=== PATIENT | male | born 1995 | race Caucasian/White ===

== ENCOUNTER 2017-03-01 09:52 | Observation (INO) | payer MEDICAID ==
[~2017-03-01] VITALS: Ht 190.5 cm; Wt 149.0 kg
[2017-03-01 09:53] VITALS: BP 165/97; PULSE 110; RESP 16; TEMP 99.1; O2SAT 97
--- NOTE | 2017-03-01 10:40 | PD ---
HPI Chief Complaint: ENT Complaint Time Seen by Provider: 10:22 Travel History International Travel<30 days: No Contact w/Intl Traveler<30days: No Traveled to known affect area: No History of Present Illness HPI 21-year-old male presents to emergency Department with complaint of sore throat since this morning. This has been sick for a week, but this morning woke up with his sore throat much worse. Pain is more on the left side. He says he can swallow his own saliva but it is very painful. Denies unusual drooling. Denies fevers, vomiting. No others with similar symptoms. Has gargled hydrogen peroxide for symptom management. Symptoms are moderate in severity. Aggravated with swallowing. Decreased without swallowing. Allergies to penicillin. No established primary care provider. Denies significant past medical history. Has no other medical complaints. No other modifying factors or associated signs and symptoms. PFSH Past Medical History Medical History: Denies Significant Hx Past Surgical History Surgical History: No Previous Surgery Social History Alcohol Use: Yes (RARE) Tobacco Use: Yes Substance Use: No Allergies-Medications (Allergen,Severity, Reaction): Coded Allergies: penicillin G (Verified Allergy, Unknown, 03/01/17) father is Reported Meds & Prescriptions Reported Meds & Active Scripts Active No Active Prescriptions or Reported Medications Review of Systems Except as stated in HPI: all other systems reviewed are Neg Physical Exam Narrative GENERAL: Well-nourished, well-developed male patient, in no acute distress SKIN: Warm and dry. No rash. HEAD: Atraumatic. Normocephalic. EYES: Pupils equal and round at 3 mm with brisk reaction. No scleral icterus. No injection or drainage. PERRLA. ENT: Mucosa pink and dry. Oral pharynx with left tonsil 3+ and right tonsil 2+ ; left worse than right. With Erythema and edema; without exudate. No Uvular edema. No uvular, palatal, or tonsillar deviation. Airway patent. Voice is hoarse. EARS: Bilateral pinnae and external canals appear within normal limits. Bilateral tympanic membranes without erythema, dullness or perforation.. NECK: Trachea midline. Anterior cervical lymphadenopathy and tenderness; left worse than right. CARDIOVASCULAR: Regular rate. RESPIRATORY: No accessory muscle use. GASTROINTESTINAL: Obese. MUSCULOSKELETAL: No obvious deformities. No clubbing. No cyanosis. No edema. NEUROLOGICAL: Awake and alert. Oriented 3. No obvious cranial nerve deficits. Motor grossly within normal limits. Normal speech. Moves all extremities. PSYCHIATRIC: Appropriate mood and affect; insight and judgment normal. Data Data Last Documented VS Vital Signs Date Time Temp Pulse Resp B/P (MAP) Pulse Ox O2 Delivery O2 Flow Rate FiO2 03/01/17 14:00 98.3 88 15 140/74 (96) 96 Room Air Orders Orders Group A Rapid Strep Screen (03/01/17 10:31) Ibuprofen (Motrin) (03/01/17 10:45) Methylprednisolone So Succ Inj (Solumedr (03/01/17 10:45) Strep Culture (Group A) (03/01/17 10:45) Basic Metabolic Panel (Bmp) (03/01/17 11:30) Complete Blood Count With Diff (03/01/17 11:30) Ct Soft Tiss Neck W Iv Cont (03/01/17 11:30) Iv Access Insert/Monitor (03/01/17 11:30) Clindamycin 600 Mg/Ns Premix (Cleocin 60 (03/01/17 12:00) Blood Culture (03/01/17 12:25) Lactic Acid (03/01/17 12:25) Sodium Chlor 0.9% 1000 Ml Inj (Ns 1000 M (03/01/17 12:30) Iohexol 350 Inj (Omnipaque 350 Inj) (03/01/17 12:35) Admit Order (Ed Use Only) (03/01/17 14:08) Labs Laboratory Tests Test 03/01/17 11:46 03/01/17 14:00 White Blood Count 24.2 TH/MM3 Red Blood Count 5.86 MIL/MM3 Hemoglobin 16.1 GM/DL Hematocrit 47.8 % Mean Corpuscular Volume 81.5 FL Mean Corpuscular Hemoglobin 27.4 PG Mean Corpuscular Hemoglobin Concent 33.6 % Red Cell Distribution Width 14.3 % Platelet Count 411 TH/MM3 Mean Platelet Volume 8.0 FL Neutrophils (%) (Auto) 79.6 % Lymphocytes (%) (Auto) 10.5 % Monocytes (%) (Auto) 8.5 % Eosinophils (%) (Auto) 0.9 % Basophils (%) (Auto) 0.5 % Neutrophils # (Auto) 19.3 TH/MM3 Lymphocytes # (Auto) 2.5 TH/MM3 Monocytes # (Auto) 2.1 TH/MM3 Eosinophils # (Auto) 0.2 TH/MM3 Basophils # (Auto) 0.1 TH/MM3 CBC Comment DIFF FINAL Differential Comment Blood Urea Nitrogen 10 MG/DL Creatinine 0.90 MG/DL Random Glucose 103 MG/DL Calcium Level 9.3 MG/DL Sodium Level 134 MEQ/L Potassium Level 4.0 MEQ/L Chloride Level 102 MEQ/L Carbon Dioxide Level 26.3 MEQ/L Anion Gap 6 MEQ/L Estimat Glomerular Filtration Rate 108 ML/MIN Lactic Acid Level 0.9 mmol/L MDM Medical Decision Making Medical Screen Exam Complete: Yes Emergency Medical Condition: Yes Medical Record Reviewed: Yes Differential Diagnosis Strep pharyngitis, viral pharyngitis, peritonsillar abscess Narrative Course 21-year-old male with sore throat. Left tonsil is edematous and could possibly be peritonsillar abscess. Rapid strep ordered. 1134: Rapid strep negative. Concern for possible peritonsillar abscess. CT soft tissue neck, CBC, BMP, clindamycin ordered. 1139: Report given to Shady Dumont PA-C. See his note for final patient disposition. Scripts No Active Prescriptions or Reported Meds Tamanna Jade Mar 01, 2017 10:40
[2017-03-01] MEDS ORDERED: methylPREDNISolone SOD SUCC 125 MG/2 ML VIAL IM ONE (10:45)
[2017-03-01] MEDS ORDERED: IBUPROFEN 800 MG TAB PO ONE (10:45)
[2017-03-01] MEDS ORDERED: CLINDAMYCIN INJ 600 MG in SODIUM CHLORIDE 0.9% INJ 100 ML IV ONE (11:30)
[2017-03-01] MEDS ORDERED: CLINDAMYCIN 600 MG/NS PREMIX 50 ML IV ONE (12:00)
[2017-03-01 12:10] LABS: AUTOMATED NEUTROPHIL # 19.3 TH/MM3 (1.8-7.7); BASOPHIL # 0.1 TH/MM3 (0-0.2); BASOPHIL % 0.5 % (0.0-2.0); EOSINOPHIL # 0.2 TH/MM3 (0-0.4); EOSINOPHIL % 0.9 % (0.0-4.0); HEMATOCRIT 47.8 % (39.0-51.0); HEMOGLOBIN 16.1 GM/DL (13.0-17.0); LYMPH % 10.5 % (9.0-44.0); LYMPHOCYTE # 2.5 TH/MM3 (1.0-4.8); MEAN CELL VOLUME 81.5 FL (80.0-100.0); MEAN CORPUSCULAR HEMOGLOBIN 27.4 PG (27.0-34.0); MEAN CORPUSCULAR HGB CONC 33.6 % (32.0-36.0); MONO % 8.5 % (0.0-8.0); MONOCYTE # 2.1 TH/MM3 (0-0.9); NEUT % 79.6 % (16.0-70.0); PLATELET COUNT 411 TH/MM3 (150-450); RED BLOOD COUNT 5.86 MIL/MM3 (4.50-5.90); RED CELL DISTRIBUTION WIDTH 14.3 % (11.6-17.2); WHITE BLOOD COUNT 24.2 TH/MM3 (4.0-11.0)
[2017-03-01 12:26] LABS: BICARBONATE 26.3 MEQ/L (21.0-32.0); CALCIUM 9.3 MG/DL (8.5-10.1); CREATININE 0.9 MG/DL (0.60-1.30)
--- NOTE | 2017-03-01 12:28 | PD ---
Physical Exam Date Seen by Provider: Mar 01, 2017 Time Seen by Provider: 12:26 Narrative 21-year-old male patient previously seen in [facility], moved to [facility] with suspected left peritonsillar abscess. Labs have been ordered, as well as IV clindamycin 600 mg IV. Patient speaking in full sentences and handling oral secretions. Labs, CT, and antibiotics ordered in [facility] pod. Patient is allergic to penicillin. Data Data Last Documented VS Vital Signs Date Time Temp Pulse Resp B/P (MAP) Pulse Ox O2 Delivery O2 Flow Rate FiO2 03/01/17 09:53 99.1 110 16 165/97 (119) 97 Orders Orders Group A Rapid Strep Screen (03/01/17 10:31) Ibuprofen (Motrin) (03/01/17 10:45) Methylprednisolone So Succ Inj (Solumedr (03/01/17 10:45) Strep Culture (Group A) (03/01/17 10:45) Basic Metabolic Panel (Bmp) (03/01/17 11:30) Complete Blood Count With Diff (03/01/17 11:30) Ct Soft Tiss Neck W Iv Cont (03/01/17 11:30) Iv Access Insert/Monitor (03/01/17 11:30) Clindamycin 600 Mg/Ns Premix (Cleocin 60 (03/01/17 12:00) Blood Culture (03/01/17 12:25) Lactic Acid (03/01/17 12:25) Sodium Chlor 0.9% 1000 Ml Inj (Ns 1000 M (03/01/17 12:30) Iohexol 350 Inj (Omnipaque 350 Inj) (03/01/17 12:35) Admit Order (Ed Use Only) (03/01/17 14:08) Labs Laboratory Tests Test 03/01/17 11:46 White Blood Count 24.2 TH/MM3 Red Blood Count 5.86 MIL/MM3 Hemoglobin 16.1 GM/DL Hematocrit 47.8 % Mean Corpuscular Volume 81.5 FL Mean Corpuscular Hemoglobin 27.4 PG Mean Corpuscular Hemoglobin Concent 33.6 % Red Cell Distribution Width 14.3 % Platelet Count 411 TH/MM3 Mean Platelet Volume 8.0 FL Neutrophils (%) (Auto) 79.6 % Lymphocytes (%) (Auto) 10.5 % Monocytes (%) (Auto) 8.5 % Eosinophils (%) (Auto) 0.9 % Basophils (%) (Auto) 0.5 % Neutrophils # (Auto) 19.3 TH/MM3 Lymphocytes # (Auto) 2.5 TH/MM3 Monocytes # (Auto) 2.1 TH/MM3 Eosinophils # (Auto) 0.2 TH/MM3 Basophils # (Auto) 0.1 TH/MM3 CBC Comment DIFF FINAL Differential Comment Blood Urea Nitrogen 10 MG/DL Creatinine 0.90 MG/DL Random Glucose 103 MG/DL Calcium Level 9.3 MG/DL Sodium Level 134 MEQ/L Potassium Level 4.0 MEQ/L Chloride Level 102 MEQ/L Carbon Dioxide Level 26.3 MEQ/L Anion Gap 6 MEQ/L Estimat Glomerular Filtration Rate 108 ML/MIN MDM Medical Record Reviewed: Yes Supervised Visit with MARTINEZ: Yes Differential Diagnosis Peritonsillar abscess. Retropharyngeal abscess. Tonsillitis. Sepsis. Narrative Course Labs reviewed showing leukocytosis of 23.2. Lactic acid and blood cultures are ordered. CMP is unremarkable. CT shows: Abnormal scan demonstrating left-sided mass in the oral and hypopharyngeal region extending from base of tongue to the pyriformis sinus. In addition, there are numerous bilateral enlarged lateral compartment and posterior triangle nodes measuring up to 3 cm. Lymphoproliferative and neoplastic processes should be considered. Call is placed to the hospitalist, and the patient is discussed with Dr. Hammer. Sepsis Criteria SIRS Criteria (2 or more): Temp > 100.9 or < 96.8, WBC > 83844, < 4000 or > 10 % bands Sepsis Criteria (SIRS+source): Infect source susp/known Criteria Outcome: Meets SIRS criteria, Meets sepsis criteria Diagnosis Primary Impression: Sepsis Qualified Codes: A41.9 - Sepsis, unspecified organism Additional Impression: Abscess of lateral pharyngeal space Admitting Information Admitting Physician Requests: Admit Scripts No Active Prescriptions or Reported Meds Disposition: 01 DISCHARGE HOME Condition: Stable Sadi Dumont Mar 01, 2017 12:28
[2017-03-01] MEDS ORDERED: SODIUM CHLOR 0.9% 1000 ML INJ 1,000 ML IV ONE (12:30)
[2017-03-01] MEDS ORDERED: IOHEXOL 350 MG/ML 10 ML VIAL (for RAD DIAG) IVCONTRAST ONE (12:35)
--- NOTE | 2017-03-01 12:54 | RADRPT ---
EXAM DATE/TIME: 03/01/2017 12:22 [facility] COMPARISON: No previous studies available for comparison. INDICATIONS : Sore throat since this morning. IV CONTRAST: 71 cc Omnipaque 350 (iohexol) IV RADIATION DOSE: 17.08 CTDIvol (mGy) MEDICAL HISTORY : None SURGICAL HISTORY : None. ENCOUNTER: Initial ACUITY: 1 day PAIN SCALE: 5/10 LOCATION: neck TECHNIQUE: Volumetric scanning of the neck was performed. Using automated exposure control and adjustment of th e mA and/or kV according to patient size, radiation dose was kept as low as reasonably achievable to obtain optimal diagnostic quality images. DICOM format image data is available electronically for r eview and comparison. FINDINGS: The examination is abnormal demonstrating soft tissue mass at the left base of the tongue and extendi ng along the lateral oral pharyngeal wall down through the level of the larynx. The margin of the mas s are difficult to discern due to similar intensity to surrounding soft tissues, but the mass does ca use narrowing of the oral pharyngeal airway and deviation of the airway towards the right. Maximum ob lique dimension in the oral pharynx is estimated at 3 cm. The width of the mass at the level of the e piglottis is 1.6 cm. There is extension into the left puriform sinus measuring 1.5 cm. There are numerous enlarged bilateral jugular and posterior triangle nodes with the largest mass on t he left measuring 3.0 cm and the largest on the right measuring 2.5 cm. Rounded soft tissue density in the right inferior maxillary sinus measures 2.7 cm, probably a retenti on cyst or polyp. The prevertebral soft tissues are normal in thickness. Homogeneous density to thyroid gland. The visu alized apical lungs are clear. Osseous structures are grossly intact.. CONCLUSION: Abnormal scan demonstrating left-sided mass in the oral and hypopharyngeal region extending from base of tongue to the pyriformis sinus. In addition, there are numerous bilateral enlarged lateral compar tment and posterior triangle nodes measuring up to 3 cm. Lymphoproliferative and neoplastic processes should be considered. Sky Mc MD on March 01, 2017 at 12:44 Board Certified Radiologist. This report was verified electronically.
[2017-03-01 14:00] VITALS: BP 140/74; PULSE 88; RESP 15; TEMP 98.3; O2SAT 96
--- NOTE | 2017-03-01 14:10 | HHI.HP ---
HPI Service [facility] Primary Care Physician No Primary Care Physician Admission Diagnosis Diagnoses: Chief Complaint: Sore Throat Travel History International Travel<30 Days: No Contact w/Intl Traveler <30 Da: No Traveled to Known Affected Are: No History of Present Illness This is a pleasant 21 y/o Male who came to ER with Sore Throat that started this morning, he is been sick for one week, but this morning woke up with his sore throat much worse. Pain is more on the left side. He says he can swallow his own saliva but it is very painful. Denies unusual drooling. Denies fevers, vomiting. No others with similar symptoms. Has gargled hydrogen peroxide for symptom management. Symptoms are moderate in severity. Aggravated with swallowing. Decreased without swallowing. Allergies to penicillin. No established primary care provider. Denies significant past medical history. Has no other medical complaints. No other modifying factors or associated signs and symptoms. Seen in ER in the presence of his Stepmother. no complaint at this time. Review of Systems Constitutional: DENIES: Fever, Chills, Change in appetite Endocrine: DENIES: Heat/cold intolerance Eyes: DENIES: Blurred vision, Eye pain Ears, nose, mouth, throat: COMPLAINS OF: Throat pain Except as stated in HPI: all other systems reviewed are Neg Past Family Social History Past Medical History No past medical history Past Surgical History No past surgical history Reported Medications Reported Meds & Active Scripts Active No Active Prescriptions or Reported Medications Allergies: Coded Allergies: penicillin G (Verified Allergy, Unknown, 03/01/17) father is Active Ordered Medications Current Medications Medications (Trade) Dose Ordered Sig/Ifeanyi Route Start Time Stop Time Status Last Admin Sodium Chloride 1,000 ml @ 100 mls/hr Q10H IV 03/01/17 14:10 03/01/17 15:10 (NS Flush) 2 ml UNSCH PRN IV FLUSH 03/01/17 14:15 (NS Flush) 2 ml BID IV FLUSH 03/01/17 21:00 (Tylenol) 650 mg Q4H PRN PO 03/01/17 14:15 (Zofran Inj) 4 mg Q6H PRN IVP 03/01/17 14:15 (Narcan Inj) 0.4 mg UNSCH PRN IV PUSH 03/01/17 14:15 (Senokot) 17.2 mg Q12H PRN PO 03/01/17 14:15 (Dulcolax Supp) 10 mg DAILY PRN RECTAL 03/01/17 14:15 (Lactulose Liq) 30 ml DAILY PRN PO 03/01/17 14:15 Family History Mother with Epilepsy and Obesity Social History Lives with his Father and stepmother Smokes five cigarettes daily denies other toxic habits. Physical Exam Vital Signs Vital Signs Date Time Temp Pulse Resp B/P (MAP) Pulse Ox O2 Delivery O2 Flow Rate FiO2 03/01/17 09:53 99.1 110 16 165/97 (119) 97 Physical Exam GENERAL: Morbid obese patient in no acute distress. SKIN: No rashes, ecchymoses or lesions. Cool and dry. HEAD: Atraumatic. Normocephalic. No temporal or scalp tenderness. EYES: Pupils equal round and reactive. Extraocular motions intact. No scleral icterus. No injection or drainage. ENT: Left tonsil with erythema and edema. NECK: Trachea midline. No JVD or lymphadenopathy. Supple, nontender, no meningeal signs. CARDIOVASCULAR: Regular rate and rhythm without murmurs, gallops, or rubs. RESPIRATORY: Clear to auscultation. Breath sounds equal bilaterally. No wheezes , rales, or rhonchi. GASTROINTESTINAL: Abdomen soft, non-tender, nondistended. No hepato-splenomegaly , or palpable masses. No guarding. MUSCULOSKELETAL: Extremities without clubbing, cyanosis, or edema. No joint tenderness, effusion, or edema noted. No calf tenderness. Negative Homans sign bilaterally. NEUROLOGICAL: Awake and alert. Cranial nerves II through XII intact. Motor and sensory grossly within normal limits. Five out of 5 muscle strength in all muscle groups. Normal speech. Laboratory Laboratory Tests Test 03/01/17 11:46 White Blood Count 24.2 Red Blood Count 5.86 Hemoglobin 16.1 Hematocrit 47.8 Mean Corpuscular Volume 81.5 Mean Corpuscular Hemoglobin 27.4 Mean Corpuscular Hemoglobin Concent 33.6 Red Cell Distribution Width 14.3 Platelet Count 411 Mean Platelet Volume 8.0 Neutrophils (%) (Auto) 79.6 Lymphocytes (%) (Auto) 10.5 Monocytes (%) (Auto) 8.5 Eosinophils (%) (Auto) 0.9 Basophils (%) (Auto) 0.5 Neutrophils # (Auto) 19.3 Lymphocytes # (Auto) 2.5 Monocytes # (Auto) 2.1 Eosinophils # (Auto) 0.2 Basophils # (Auto) 0.1 CBC Comment DIFF FINAL Differential Comment Blood Urea Nitrogen 10 Creatinine 0.90 Random Glucose 103 Calcium Level 9.3 Sodium Level 134 Potassium Level 4.0 Chloride Level 102 Carbon Dioxide Level 26.3 Anion Gap 6 Estimat Glomerular Filtration Rate 108 Date/Time Source Procedure Growth Status 03/01/17 10:45 Throat Group A Streptococcus Screen Pending Received Result Diagram: 03/01/17 1146 03/01/17 1146 Imaging Last Impressions Neck CT 03/01/17 1130 Signed Impressions: Service Date/Time: Wednesday, March 01, 2017 12:22 - CONCLUSION: Abnormal scan demonstrating left-sided mass in the oral and hypopharyngeal region extending from base of tongue to the pyriformis sinus. In addition, there are numerous bilateral enlarged lateral compartment and posterior triangle nodes measuring up to 3 cm. Lymphoproliferative and neoplastic processes should be considered. MD James Nancei VTE Risk Assessment Caprini VTE Risk Assessment: No/Low Risk (score <= 1) Caprini Risk Assessment Model Point Value = 1 Point Value = 2 Point Value = 3 Point Value = 5 Age 41-60 Minor surgery BMI > 25 kg/m2 Swollen legs Varicose veins or History of unexplained or recurrent spontaneous Oral contraceptives or hormone replacement Sepsis (< 1 month) Serious lung disease, including pneumonia (< 1 month) Abnormal pulmonary function Acute myocardial infarction Congestive heart failure (< 1 month) History of inflammatory bowel disease Medical patient at bed rest Age 61-74 Arthroscopic surgery Major open surgery (> 45 min) Laparoscopic surgery (> 45 min) Malignancy Confined to bed (> 72 hours) Immobilizing plaster cast Central venous access Age >= 75 History of VTE Family history of VTE Factor V Leiden Prothrombin [id number] Lupus anticoagulant Anticardiolipin antibodies Elevated serum homocysteine Heparin-induced thrombocytopenia Other congenital or acquired thrombophilia Stroke (< 1 month) Elective arthroplasty Hip, pelvis, or leg fracture Acute spinal cord injury (< 1 month) Prophylaxis Regimen Total Risk Factor Score Risk Level Prophylaxis Regimen 0-1 Low Early ambulation 2 Moderate Order ONE of the following: *Sequential Compression Device (SCD) *Heparin 5000 units SQ BID 3-4 Higher Order ONE of the following medications: *Heparin 5000 units SQ TID *Enoxaparin/Lovenox 40 mg SQ daily (WT < 150 kg, CrCl > 30 mL/min) *Enoxaparin/Lovenox 30 mg SQ daily (WT < 150 kg, CrCl > 10-29 mL/min) *Enoxaparin/Lovenox 30 mg SQ BID (WT < 150 kg, CrCl > 30 mL/min) AND/OR *Sequential Compression Device (SCD) 5 or more Highest Order ONE of the following medications: *Heparin 5000 units SQ TID (Preferred with Epidurals) *Enoxaparin/Lovenox 40 mg SQ daily (WT < 150 kg, CrCl > 30 mL/min) *Enoxaparin/Lovenox 30 mg SQ daily (WT < 150 kg, CrCl > 10-29 mL/min) *Enoxaparin/Lovenox 30 mg SQ BID (WT < 150 kg, CrCl > 30 mL/min) AND *Sequential Compression Device (SCD) Assessment and Plan Assessment and Plan 1. Bacterial tonsillitis, Rapid strep negative. stated on Clindamycin IV, and given one dose of Solu-Medrol ENT for evaluation, has Leukocytosis following. 2. Morbid obesity strongly recommended diet and exercise 3. tobacco dependence strongly recommended diet and exercise. DVT prophylaxis with SCDs. Code Status Full code Discussed Condition With Patient, ER PA and Stepmother Praneeth Aggarwal MD Mar 01, 2017 14:10
[2017-03-01] MEDS ORDERED: ONDANSETRON HCL 4 MG/2 ML VIAL IVP PRN (14:15)
[2017-03-01] MEDS ORDERED: NALOXONE HCL 0.4 MG/ML AMP IV PUSH PRN (14:15)
[2017-03-01] MEDS ORDERED: LACTULOSE SYRUP 20 GM/30 ML CUP PO PRN (14:15)
[2017-03-01] MEDS ORDERED: SENNOSIDES 8.6 MG TAB PO PRN (14:15)
[2017-03-01] MEDS ORDERED: ACETAMINOPHEN 325 MG TAB PO PRN (14:15)
[2017-03-01] MEDS ORDERED: BISACODYL 10 MG SUPP RECTAL PRN (14:15)
[2017-03-01] MEDS ORDERED: SODIUM CHLORIDE 0.9% FLUSH 10 ML FLUSH IV FLUSH PRN (14:15)
[2017-03-01] MEDS: SODIUM CHLOR 0.9% 1000 ML INJ 1,000 ML IV SCH (15:10)
[2017-03-01] MEDS: DEXAMETHASONE SOD PHOS 4 MG/ML VIAL IV PUSH SCH ×2 (17:54→23:53)
[2017-03-01 18:00] VITALS: BP 167/105; PULSE 96; RESP 18; TEMP 97.6; O2SAT 95
[2017-03-01 20:00] VITALS: BP 162/80; PULSE 118; RESP 17; TEMP 98; O2SAT 91
[2017-03-01] MEDS: SODIUM CHLORIDE 0.9% FLUSH 10 ML FLUSH IV FLUSH SCH (21:00)
[2017-03-01] MEDS: CLINDAMYCIN 600 MG/NS PREMIX 50 ML IV SCH (21:35)
[2017-03-02] VITALS: BP 160/82; PULSE 112; RESP 17; TEMP 98.6; O2SAT 97
[2017-03-02] MEDS: SODIUM CHLOR 0.9% 1000 ML INJ 1,000 ML IV SCH ×2 (01:15→10:15)
[2017-03-02] MEDS: CLINDAMYCIN 600 MG/NS PREMIX 50 ML IV SCH ×3 (03:57→20:43)
[2017-03-02] MEDS: DEXAMETHASONE SOD PHOS 4 MG/ML VIAL IV PUSH SCH ×3 (05:40→16:28)
--- NOTE | 2017-03-02 06:44 | PD.CONS ---
History of Present Illness Service ENT Consult Requested By ED Reason for Consult Tonsillitis Primary Care Physician No Primary Care Physician Diagnoses: History of Present Illness 21 year old male, 1 week sore throat. Developed left throat pain and swelling. Could not eat. Treated in ED. Good response to antibiotics and steroids. Review of Systems Ears, nose, mouth, throat: COMPLAINS OF: Throat pain, Odynophagia, DENIES: Nasal discharge, Oral lesions Past Family Social History Allergies: Coded Allergies: penicillin G (Verified Allergy, Unknown, 03/01/17) father is Past Medical History No previous tonsillitis. Physical Exam Vital Signs Vital Signs Date Time Temp Pulse Resp B/P (MAP) Pulse Ox O2 Delivery O2 Flow Rate FiO2 03/02/17 00:00 98.6 112 17 160/82 (108) 97 03/01/17 20:00 98.0 118 17 162/80 (107) 91 03/01/17 18:00 97.6 96 18 167/105 (125) 95 03/01/17 16:54 03/01/17 14:00 98.3 88 15 140/74 (96) 96 Room Air 03/01/17 09:53 99.1 110 16 165/97 (119) 97 Physical Exam GENERAL: This is a well-nourished, well-developed patient, in no apparent distress. SKIN: No rashes, ecchymoses or lesions. Cool and dry. HEAD: Atraumatic. Normocephalic. No temporal or scalp tenderness. EYES: Pupils equal round and reactive. Extraocular motions intact. No scleral icterus. No injection or drainage. ENT: Nose without bleeding, purulent drainage or septal hematoma. Throat with improving tonsillar hypertrophy and erythema. Uvula midline. Airway patent. NECK: Trachea midline. Diminished lymphadenopathy. Supple, nontender, no meningeal signs. Laboratory Laboratory Tests Test 03/01/17 11:46 03/01/17 14:00 White Blood Count 24.2 Red Blood Count 5.86 Hemoglobin 16.1 Hematocrit 47.8 Mean Corpuscular Volume 81.5 Mean Corpuscular Hemoglobin 27.4 Mean Corpuscular Hemoglobin Concent 33.6 Red Cell Distribution Width 14.3 Platelet Count 411 Mean Platelet Volume 8.0 Neutrophils (%) (Auto) 79.6 Lymphocytes (%) (Auto) 10.5 Monocytes (%) (Auto) 8.5 Eosinophils (%) (Auto) 0.9 Basophils (%) (Auto) 0.5 Neutrophils # (Auto) 19.3 Lymphocytes # (Auto) 2.5 Monocytes # (Auto) 2.1 Eosinophils # (Auto) 0.2 Basophils # (Auto) 0.1 CBC Comment DIFF FINAL Differential Comment Blood Urea Nitrogen 10 Creatinine 0.90 Random Glucose 103 Calcium Level 9.3 Sodium Level 134 Potassium Level 4.0 Chloride Level 102 Carbon Dioxide Level 26.3 Anion Gap 6 Estimat Glomerular Filtration Rate 108 Lactic Acid Level 0.9 Date/Time Source Procedure Growth Status 03/01/17 14:00 Blood Peripheral Aerobic Blood Culture Pending Received 03/01/17 14:00 Blood Peripheral Anaerobic Blood Culture Pending Received 03/01/17 10:45 Throat Group A Streptococcus Screen Pending Received Result Diagram: 03/01/17 1146 03/01/[address] reviewed Assessment and Plan Assessment and Plan 21 year old male, tonsillitis, pharyngitis, cervical adenopathy. Good response to steroids and antibiotics. Due to severity of inflammation would treat with IV meds in hospital today. On Cleocin and Decadron. Can discharge tomorrow on a short steroid taper and Clindamycin 300 mg TID for 1 week. Follow with ENT prn. Does not require surgery. Jose Francisco MD Mar 02, 2017 06:44
[2017-03-02] MEDS: SODIUM CHLORIDE 0.9% FLUSH 10 ML FLUSH IV FLUSH SCH ×2 (07:48→20:43)
[2017-03-02 08:00] VITALS: BP 160/84; PULSE 90; RESP 20; TEMP 96.9; O2SAT 96
[2017-03-02] MEDS ORDERED: CLIN300C5 PO (08:48)
[2017-03-02 08:55] LABS: ALBUMIN 3.6 GM/DL (3.4-5.0); AST (GOT) LESS THAN 3 U/L (15-39); BICARBONATE 24.6 MEQ/L (21.0-32.0); BLOOD UREA NITROGEN 9 MG/DL (7-18); CALCIUM 9.7 MG/DL (8.5-10.1); CHLORIDE 103 MEQ/L (98-107); CREATININE 0.73 MG/DL (0.60-1.30); GLOMERULAR FILTRATION RATE 137 ML/MIN (>89); GLUCOSE,RANDOM 135 MG/DL (74-106); SODIUM (NA) 137 MEQ/L (136-145)
[2017-03-02 08:56] LABS: ALT (GPT) 27 U/L (9-52)
[2017-03-02 08:59] LABS: ALKALINE PHOSPHATASE 97 U/L (45-117); TOTAL BILIRUBIN ADULT 0.4 MG/DL (0.2-1.0); TOTAL PROTEIN 8.8 GM/DL (6.4-8.2)
[2017-03-02 12:00] VITALS: BP 176/79; PULSE 104; RESP 19; TEMP 96.9; O2SAT 99
--- NOTE | 2017-03-02 14:30 | HHI.PR ---
Subjective Remarks Follow-up for tonsillitis, pharyngitis and cervical adenopathy. Patient is currently doing well. He is able to tolerate food. No airway issues. No fever or chills. Objective Vitals Vital Signs Date Time Temp Pulse Resp B/P (MAP) Pulse Ox O2 Delivery O2 Flow Rate FiO2 03/02/17 12:00 96.9 104 19 176/79 (111) 99 03/02/17 08:00 96.9 90 20 160/84 (109) 96 03/02/17 00:00 98.6 112 17 160/82 (108) 97 03/01/17 20:00 98.0 118 17 162/80 (107) 91 03/01/17 18:00 97.6 96 18 167/105 (125) 95 03/01/17 16:54 I/O 03/01/17 03/01/17 03/01/17 03/02/17 03/02/17 03/02/17 07:00 15:00 23:00 07:00 15:00 23:00 Intake Total 1000 ml 140 ml 1190 ml 880 ml Balance 1000 ml 140 ml 1190 ml 880 ml Intake Oral 90 ml 240 ml 880 ml IV Total 1000 ml 50 ml 950 ml # Voids 1 1 # Bowel Movements 0 Result Diagram: 03/01/17 1146 03/02/17 0729 Imaging Last Impressions Neck CT 03/01/17 1130 Signed Impressions: Service Date/Time: Wednesday, March 01, 2017 12:22 - CONCLUSION: Abnormal scan demonstrating left-sided mass in the oral and hypopharyngeal region extending from base of tongue to the pyriformis sinus. In addition, there are numerous bilateral enlarged lateral compartment and posterior triangle nodes measuring up to 3 cm. Lymphoproliferative and neoplastic processes should be considered. Sky Mc MD Objective Remarks GENERAL: Alert, oriented 3, NAD. SKIN: Warm and dry. HEAD: Normocephalic. EYES: No scleral icterus. No injection or drainage. NECK: Supple, trachea midline. No JVD or lymphadenopathy. No exudates noted on tonsils. Tonsils are somewhat enlarged. CARDIOVASCULAR: Regular rate and rhythm without murmurs, gallops, or rubs. RESPIRATORY: Breath sounds equal bilaterally. No accessory muscle use. GASTROINTESTINAL: Abdomen soft, non-tender, nondistended. MUSCULOSKELETAL: No cyanosis, or edema. BACK: Nontender without obvious deformity. No CVA tenderness. Procedures None A/P Problem List: (1) Acute pharyngitis ICD Code: J02.9 - Acute pharyngitis, unspecified (2) Acute tonsillitis ICD Code: J03.90 - Acute tonsillitis, unspecified Assessment and Plan Mr. Santiago is a 21-year-old male with no significant medical history who presented to the emergency department due to throat pain that started one week prior to this admission. Patient was evaluated by ENT. Patient is improving on steroid and antibiotics. - Acute tonsillitis - Acute pharyngitis - Patient is currently on clindamycin 600 mg every 8 hours IV. We'll continue IV clindamycin today. - Also continue dexamethasone 6 mg IV every 6 hours. We'll continue short- term steroid on discharge as well. - Appreciate ENT input. ENT recommends IV antibiotics and steroid today. Possible discharge tomorrow on oral clindamycin. - Obesity - Tobacco abuse - Patient has been counseled regarding obesity and tobacco abuse. Full code. Ambulation. Possible discharge in the morning on oral clindamycin, steroid. Bryon Chaney DO Mar 02, 2017 2:30 pm
[2017-03-02 16:00] VITALS: BP 147/93; PULSE 110; RESP 19; TEMP 97.3; O2SAT 95
[2017-03-02 20:00] VITALS: BP 174/95; PULSE 116; RESP 22; TEMP 96.8; O2SAT 95
[2017-03-03] VITALS: BP 157/90; PULSE 95; RESP 20; TEMP 97.3; O2SAT 95
[2017-03-03] MEDS: DEXAMETHASONE SOD PHOS 4 MG/ML VIAL IV PUSH SCH ×2 (01:20→05:30)
[2017-03-03] MEDS: CLINDAMYCIN 600 MG/NS PREMIX 50 ML IV SCH (05:29)
[2017-03-03 08:00] VITALS: BP 169/96; PULSE 97; RESP 19; TEMP 96.9; O2SAT 97
[2017-03-03 08:40] LABS: AUTOMATED NEUTROPHIL # 25.2 TH/MM3 (1.8-7.7); BASOPHIL % 0.1 % (0.0-2.0); HEMATOCRIT 46.4 % (39.0-51.0); HEMOGLOBIN 15.7 GM/DL (13.0-17.0); LYMPH % 5.7 % (9.0-44.0); LYMPHOCYTE # 1.6 TH/MM3 (1.0-4.8); MEAN CELL VOLUME 82.9 FL (80.0-100.0); MEAN CORPUSCULAR HGB CONC 33.7 % (32.0-36.0); MEAN PLATELET VOLUME 8.6 FL (7.0-11.0); MONO % 4.1 % (0.0-8.0); MONOCYTE # 1.1 TH/MM3 (0-0.9); NEUT % 90.1 % (16.0-70.0); PLATELET COUNT 500 TH/MM3 (150-450); RED CELL DISTRIBUTION WIDTH 14.2 % (11.6-17.2)
[2017-03-03 09:01] LABS: BICARBONATE 25.5 MEQ/L (21.0-32.0); CALCIUM 9.7 MG/DL (8.5-10.1); CREATININE 0.7 MG/DL (0.60-1.30)
[2017-03-03] MEDS ORDERED: MEDR4PAK PO (09:22)
--- NOTE | 2017-03-03 19:53 | HHI.DS ---
Discharge Summary Admission Date Mar 01, 2017 at 14:09 Discharge Date: Mar 03, 2017 Admitting Diagnosis (1) Acute pharyngitis ICD Code: J02.9 - Acute pharyngitis, unspecified Diagnosis: Principal (2) Acute tonsillitis ICD Code: J03.90 - Acute tonsillitis, unspecified Diagnosis: Principal Procedures None Brief History - From Admission This is a pleasant 21 y/o Male who came to ER with Sore Throat that started this morning, he is been sick for one week, but this morning woke up with his sore throat much worse. Pain is more on the left side. He says he can swallow his own saliva but it is very painful. Denies unusual drooling. Denies fevers, vomiting. No others with similar symptoms. Has gargled hydrogen peroxide for symptom management. Symptoms are moderate in severity. Aggravated with swallowing. Decreased without swallowing. Allergies to penicillin. No established primary care provider. Denies significant past medical history. Has no other medical complaints. No other modifying factors or associated signs and symptoms. Seen in ER in the presence of his Stepmother. no complaint at this time. CBC/BMP: 03/03/17 0741 03/03/17 0741 Significant Findings Laboratory Tests Test 03/01/17 11:46 03/01/17 14:00 03/02/17 07:29 03/03/17 07:41 White Blood Count 24.2 TH/MM3 (4.0-11.0) 28.0 TH/MM3 (4.0-11.0) Neutrophils (%) (Auto) 79.6 % (16.0-70.0) 90.1 % (16.0-70.0) Monocytes (%) (Auto) 8.5 % (0.0-8.0) Neutrophils # (Auto) 19.3 TH/MM3 (1.8-7.7) 25.2 TH/MM3 (1.8-7.7) Monocytes # (Auto) 2.1 TH/MM3 (0-0.9) 1.1 TH/MM3 (0-0.9) Sodium Level 134 MEQ/L (136-145) Random Glucose 135 MG/DL (74-106) 112 MG/DL (74-106) Total Protein 8.8 GM/DL (6.4-8.2) Aspartate Amino Transf (AST/SGOT) LESS THAN 3 U/L (15-39) Platelet Count 500 TH/MM3 (150-450) Lymphocytes (%) (Auto) 5.7 % (9.0-44.0) Imaging Last Impressions Neck CT 03/01/17 1130 Signed Impressions: Service Date/Time: Wednesday, March 01, 2017 12:22 - CONCLUSION: Abnormal scan demonstrating left-sided mass in the oral and hypopharyngeal region extending from base of tongue to the pyriformis sinus. In addition, there are numerous bilateral enlarged lateral compartment and posterior triangle nodes measuring up to 3 cm. Lymphoproliferative and neoplastic processes should be considered. Sky Mc MD PE at Discharge GENERAL: Alert, oriented 3, NAD. SKIN: Warm and dry. HEAD: Normocephalic. EYES: No scleral icterus. No injection or drainage. NECK: Supple, trachea midline. No JVD or lymphadenopathy. No exudates noted on tonsils. Tonsils are somewhat enlarged. CARDIOVASCULAR: Regular rate and rhythm without murmurs, gallops, or rubs. RESPIRATORY: Breath sounds equal bilaterally. No accessory muscle use. GASTROINTESTINAL: Abdomen soft, non-tender, nondistended. MUSCULOSKELETAL: No cyanosis, or edema. BACK: Nontender without obvious deformity. No CVA tenderness. Pt update on day of discharge Patient is currently doing well. No acute concerns. No fever, chills. No airway issues. Tolerating diet well. Ambulating well. Hospital Course Mr. Santiago is a 21-year-old male with no significant medical history who presented to the emergency department due to throat pain that started one week prior to this admission. Patient was evaluated by ENT. Patient is improving on steroid and antibiotics. - Acute tonsillitis - Acute pharyngitis - Patient received clindamycin 600 mg every 8 hours IV. We'll continue PO Clindamycin on discharge. - Also received dexamethasone 6 mg IV every 6 hours. Will continue medrol dosepak on discharge. - Leukocytosis - no clinical evidence of worsening infection. WBC 24K --> 28K is likely reactive. Patient is on steroid as well. I have recommended patient to obtain CBC in 3 weeks. If WBC remains high, he is advised to get an evaluation by a veterinary poultry inspector. - Obesity - Tobacco abuse - Patient has been counseled regarding obesity and tobacco abuse. Full code. Ambulation. Pt Condition on Discharge: Good Discharge Disposition: Discharge Home Discharge Time: <= 30 minutes Discharge Instructions DIET: Follow Instructions for: As Tolerated, No Restrictions Activities you can perform: Regular-No Restrictions Follow up Referrals: PCP Follow-up - 1 Week New Medications: Clindamycin (Clindamycin) 300 Mg Cap 300 MG PO TID for Infection, #30 CAP 0 Refills Methylprednisolone Dosepak (Medrol Dosepak) 4 Mg Dspk 4 MG PO DIRECTED, #1 DSPK 0 Refills Per Pharmacist direction Bryon Chaney DO Mar 03, 2017 19:53
== END 2017-03-03 10:42 | disposition home or self-care (01) ==
LOC: NEPK 09:52 → INTOOBSV 14:09 → NEDA 14:09 → N07A 17:00
PROVIDERS: ADMIT Hospitalist; ATTEND Hospitalist
DX: J03.90 Acute tonsillitis, unspecified (principal); D72.829 Elevated white blood cell count, unspecified; E66.9 Obesity, unspecified; F17.210 Nicotine dependence, cigarettes, uncomplicated; Z88.0 Allergy status to penicillin
CPT/HCPCS: 70491; 80048; 80053; 83605; 85025; 87040; 87081; 87880; 96361; 96365; 96366; 96372; 96375; 96376; 99285; G0378; J1100; J2930; J7030; Q9967